=== PATIENT | female | born 1940 | race Caucasian/White ===

== ENCOUNTER 2016-09-03 14:48 | Inpatient (IN) | payer OTHER, MEDICARE ==
--- NOTE | 2016-09-03 15:20 | UCPHY ---
H & P Patient Type: Established Chief Complaint Nursing Narrative: sent from XR due to SOB/CP- fell on corner of wall the Aug HPI/ROS: Chief complaint: Shortness of breath HPI: 76-year-old female with shortness of breath for the past 5 days. 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 Since that time she has had shortness of breath and pain with deep inspiration. She was seen by her primary care physician yesterday who ordered a chest x-ray today. She received a call take a day stating that she had a pneumothorax on the chest x-ray should present for evaluation. Patient has had mild cough. Persistent shortness of with pleuritic pain on the left side in her left back. No fevers or chills. Cough is nonproductive. She has no nausea or vomiting. She did not hit her head. No loss of consciousness. She is not currently on any blood thinning medications. ROS: 10 point Review of Systems is negative except as noted in the HPI. Physical exam: Gen: Awake, Alert, Airway Intact HEENT: Head: Atraumatic Eyes: PERRLA, EOMI Nose: No epistaxis Mouth: Normal dentition, Airway patent Face: No deformity Neck: non-tender, no stepoff, Full ROM without pain Chest: Left lateral posterior chest wall tenderness per to palpation, diminished breath sounds on the left Heart: normal heart tones Abd: soft, non-tender, atraumatic Pelvis: non-tender, stable to AP and Lateral compression Back: atraumatic, no midline tenderness Ext: atramatic, full ROM Skin: no rash Neuro: CN II-XII intact, Strength 5/5 in all extremities, sensation intact in all extremities - Personal History Current Tetanus Diphtheria and Acellular Pertussis (TDAP): Yes - Medical/Surgical History Hx Asthma: No Hx Chronic Respiratory Disease: No Hx Diabetes: No Hx Cardiac Disease: No Hx Renal Disease: No Hx Cirrhosis: No Hx Alcoholism: No Hx HIV/AIDS: No Hx Splenectomy or Spleen Trauma: No Other PMH: INFECTED HIPREPLACEMENT, PARKINSONS - Family History Significant Family History: No pertinent family hx - Social History Smoking Status: Never smoked Constitutional: Initial Vital Signs Temperature (C) 36.6 C 01/17/17 14:59 Heart Rate 88 09/03/16 14:59 Respiratory Rate 18 09/03/16 14:59 Blood Pressure 138/80 H 09/03/16 14:59 O2 Sat (%) 92 09/03/16 14:59 O2 Delivery Mode Room Air Allergies/Adverse Reactions: meperidine HCl [From Demerol] Adverse Reaction (Severe, Verified 03/10/10 10:16) pseudoephedrine HCl [From Sudafed] Adverse Reaction (Unknown, Verified 03/10/10 10:16) Quinidine-Quinine Analogues (Cincho Adverse Reaction (Unknown, Verified 10:16) Sulfa (Sulfonamide Antibiotics) Adverse Reaction (Unknown, Verified 03/10/10 10: 16) tetracycline [Tetracycline] Adverse Reaction (Unknown, Verified 03/10/10 10:16) ciprofloxacin [From Cipro] Adverse Reaction (Verified 03/10/10 10:16) ciprofloxacin HCl [From Cipro] Adverse Reaction (Verified 03/10/10 10:16) digoxin [Digoxin] Adverse Reaction (Verified 03/10/10 10:16) EES Adverse Reaction (Severe, Uncoded 03/10/10 10:16) INDOCIN Adverse Reaction (Unknown, Uncoded 03/10/10 10:16) Home Medications: Medication Instructions Recorded CARBIDOPA-LEVO 10-100 MG ODT 03/10/10 Calcium Citrate W/Vit D 03/10/10 MAGNESIUM 03/10/10 REQUIP 03/10/10 SYNTHROID 03/10/10 TRAMADOL HCL 03/10/10 Medical Decision Making ED Course/Re-evaluation: Have reviewed the patient's chest x-ray. She has a large left hemopneumothorax with some midline shift suggestive of tension physiology. Her hemodynamics are appropriate. She is not tachycardic. Her blood pressure is normal. She is mildly hypoxemic at 92% and this is improved with oxygen. After review of the materials in the urgent care is clear that we do not have adequate indicate materials for placement of a tube thoracostomy. Trauma surgery [place] continues been paged. I have discussed with Dr. Osiris Carrizales, trauma surgeon on [facility]. She will accept the patient transfer to their facility for further care. She agrees that a given the patient sustained a fall 5 days ago and her hemodynamics are appropriate patient does not require emergent needle decompression at this time. She is requesting the patient be transferred to the [facility] Emergency Department where she can then placed chest tube. I have discussed with Dr. Lopez in the ED. He will accept the patient transfer. I have explained to the patient the plan. She understands the necessity for admission to the hospital and for chest tube placement. She is currently declining any pain medicine at this time. An IV is been placed. Labs will be ordered. Departure - Departure Disposition: [facility] Inpatient Acute Clinical Impression: Fracture of rib, Pneumothorax, Hemothorax Condition: Fair - PQRS PQRS Measurement: 134: Depression screening and followup, PRIME MD-PHQ2 (12 years and older) Over the last 2 weeks, how often have you been bothered by any of the following problems? 1. Feeling down, depressed, or hopeless? 2. Little interest or pleasure in doing things? Patient answered no to both 1 and 2 130: Documentation of medications. Reviewed all patient medications, doses, route and frequency. 226: Do you smoke? No. 47: 65 and older: Advanced care planning. Patient designates surrogate decision maker as child. Patient has advanced directive. 51: 18 years old and older with diagnosis of COPD, spirometry performance. Patient has no history of COPD 52: 18 years old and older with COPD and symptoms of COPD or FEV1<60% predicted prescribed a B Agonist. Spirometry not performed; equipment not available.
--- NOTE | 2016-09-03 15:31 | DX ---
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 ICD-1O Diagnostic Codes: M79.601, S29.8XXA, and R05. COMPARISON STUDIES: Chest radiography, dated 01/29/2016 and left rib series, dated 06/20/2015. FINDINGS: LEFT RIB SERIES (4 Views, 2:12 p.m.): There is a large left-sided hydropneumothorax with approximatel y 60-70% collapse of the lung. Pleural fluid is seen at the left lung base. A calcified granuloma is seen within the upper lateral portion of the collapsed left lung. There is a large retrocardiac hiata l hernia also present. There are old healed and/or subacute fractures involving the left eighth, nint h, and tenth ribs (although there appears to be a potential acute superimposed component with the inf erolateral ninth and tenth ribs). There are also old healed right eighth, ninth, and tenth rib fractu re deformities. There is a sigmoid-shaped thoracolumbar scoliosis. There is slight mediastinal shift, left to right, although the trachea remains relatively midline. The right lung is well-expanded. The re are surgical clips in the right upper quadrant of the abdomen. I communicated these results to Dr. Shay Scott, and also discussed them subsequently Dr. Tg vega at the urgent Care Center at 2:40 PM on 09/03/2016. IMPRESSION: 1. There is a large left-sided pneumothorax with a hydropneumothorax component and some slight tensio n. 2. Old right eighth through ninth rib fracture deformities and variably-staged fractures associated w ith the left eighth, ninth and tenth ribs (and an acute superimposed component of the ninth and tenth ribs may be present). 3. Old granulomatous disease. 4. Sigmoid-shaped rotatory thoracolumbar scoliosis, with multilevel degenerative changes. CHEST (PA AND LATERAL VIEWS) at 1:59 PM: A metallic BB has been placed over the inferolateral left ri b cage where fractures involving the left eighth, ninth, and tenth ribs are present and are variably- aged (acute, subacute, and chronic). A large retrocardiac hiatal hernia is noted, and a large left-si ded hydropneumothorax is present with slight tension. The right lung is relatively clear. Sigmoid-sha ped thoracolumbar scoliosis is seen. IMPRESSION: Large left pneumothorax with a hydropneumothorax component, and retrocardiac hiatal herni a with some variably-aged rib fractures. LEFT HUMERUS (2 Views, at 2:15 PM): The bones are demineralized. There is no acute fracture or disloc ation associated with the humerus. On the first image acquired there is an equivocal small rounded os teolucency involving the humeral diaphysis (not seen on the orthogonal plane); perhaps some superimpo sed regional adipose could explain this feature. If there is further clinical concern with localized tenderness in this location, a bone scan could be considered. The glenohumeral and acromioclavicular joints are anatomically aligned. Incidental note is made of the incompletely imaged left hydropneumot horax with some variably aged left-sided rib fractures. IMPRESSION: 1. Bone demineralization, with no acute humeral fracture. 2. Equivocal osteolucency versus artifact associated with the proximal humeral diaphysis. Clinical co rrelation is suggested. If there is further concern, a bone scan may be of benefit. 3. Left hydropneumothorax with rib fractures.
[2016-09-03 15:35] LABS: % IMMATURE GRANULYOCYTES 0.6 % (0.0-1.1); ABSOLUTE IMMATURE GRANULOCYTES 0.04 10^3/uL (0.00-0.10); ADD DIFF? NO; ADD MORPH? NO; ADD SCAN? NO; ATYPICAL LYMPHOCYTE FLAG 10 (0-99); FRAGMENT RBC FLAG 0 (0-99); HEMATOCRIT 37.6 % (38.0-47.0); HEMOGLOBIN 12.9 g/dL (12.6-16.3); LEFT SHIFT FLG 10 (0-99); LIPEMIA HEMOLYSIS FLAG 90 (0-99); MEAN CELL HEMOGLOBIN 30.7 pg (27.9-34.1); MEAN CELL HEMOGLOBIN CONCENTR. 34.3 g/dL (32.4-36.7); MEAN CELL VOLUME 89.5 fL (81.5-99.8); MEAN PLATELET VOLUME 8.9 fL (8.7-11.7); PLATELET CLUMPS FLAG 0 (0-99); PLATELET COUNT 234 10^3/uL (150-400); RED CELL DISTRIBUTION WIDTH 13.8 % (11.5-15.2)
[2016-09-03 15:47] LABS: INR 0.99 (0.83-1.16); PROTIME(PATIENT) 12.9 SEC (12.0-15.0)
[2016-09-03 15:48] LABS: ANION GAP 7 mEq/L (8-16); APTT 32.6 SEC (23.0-38.0); CALCIUM 8.7 mg/dL (8.5-10.4); CARBON DIOXIDE 26 mEq/l (22-31); CHLORIDE 104 mEq/L (97-110); CREATININE 0.9 mg/dL (0.6-1.0); GLOMERULAR FILTRATION RATE > 60; GLUCOSE 95 mg/dL (70-100); POTASSIUM 4.4 mEq/L (3.5-5.2); SODIUM 137 mEq/L (134-144)
[2016-09-03] MEDS ORDERED: ONDANSETRON DISINTEGRATING 4 MG TAB PO PRN (16:34)
[2016-09-03] MEDS ORDERED: NALOXONE HCL 0.4 MG/ML INJ IVP PRN (16:34)
[2016-09-03] MEDS ORDERED: ONDANSETRON 4 MG/2 ML VIAL IVP PRN (16:34)
[2016-09-03] MEDS ORDERED: fentaNYL 100 MCG/2 ML INJ IVP ONE ×3 (16:48→17:05)
--- NOTE | 2016-09-03 17:05 | EDPHY ---
H & P Time Seen by Provider: 09/03/16 17:02 HPI/ROS: CHIEF COMPLAINT: Brought in by paramedics with tension pneumothorax HISTORY OF PRESENT ILLNESS: The patient is brought in by paramedics from the urgent care facility where she was diagnosed with a tension pneumothorax. The patient reportedly had a mechanical fall earlier in the week. She presented to her primary care provider today's office for evaluation of rib pain. As result of that evaluation, a chest x-ray was obtained which demonstrated a left tension hemopneumothorax. The patient is not anticoagulated. The patient does take Requip for her Parkinson's disease. The patient denies any headache, neck pain or abdominal pain. The patient does have some pain in her left humerus. REVIEW OF SYSTEMS: A comprehensive 10 point review of systems is otherwise negative aside from elements mentioned in the history of present illness. Source: Patient Exam Limitations: No limitations - Personal History Current Tetanus Diphtheria and Acellular Pertussis (TDAP): Yes - Medical/Surgical History Hx Asthma: No Hx Chronic Respiratory Disease: No Hx Diabetes: No Hx Cardiac Disease: No Hx Renal Disease: No Hx Cirrhosis: No Hx Alcoholism: No Hx HIV/AIDS: No Hx Splenectomy or Spleen Trauma: No Other PMH: INFECTED HIPREPLACEMENT, PARKINSONS - Family History Significant Family History: No pertinent family hx - Social History Smoking Status: Never smoked Alcohol Use: None Drug Use: None - Physical Exam Exam: General Appearance: Alert, no distress Head: Atraumatic Eyes: Pupils equal, round, reactive ENT, Mouth: No hemotympanum, no oral trauma Neck: Nontender, trachea midline Respiratory: Tenderness and crepitus noted right and left chest wall Cardiovascular: Regular rate and rhythm Abdomen: Abdomen is soft and nontender, pelvis stable Skin: No lacerations, No abrasion Back: No midline T/L/S pain Extremities: Nontender, full range of motion Neurological: A&Ox3, normal motor function, normal sensory exam Constitutional: Initial Vital Signs Temperature (C) 36.6 C 09/03/16 14:59 Heart Rate 88 09/03/16 14:59 Respiratory Rate 18 09/03/16 14:59 Blood Pressure 138/80 H 09/03/16 14:59 O2 Sat (%) 92 09/03/16 14:59 O2 Delivery Mode Nasal Cannula O2 (L/minute) 2 Allergies/Adverse Reactions: [facility] Adverse Reaction (Severe, Verified 03/10/10 10:16) pseudoephedrine HCl [From Sudafed] Adverse Reaction (Unknown, Verified 03/10/10 10:16) Quinidine-Quinine Analogues (Cincho Adverse Reaction (Unknown, Verified 10:16) Sulfa (Sulfonamide Antibiotics) Adverse Reaction (Unknown, Verified 03/10/10 10: 16) tetracycline [Tetracycline] Adverse Reaction (Unknown, Verified 03/10/10 10:16) ciprofloxacin [From Cipro] Adverse Reaction (Verified 03/10/10 10:16) ciprofloxacin HCl [From Cipro] Adverse Reaction (Verified 03/10/10 10:16) digoxin [Digoxin] Adverse Reaction (Verified 03/10/10 10:16) EES Adverse Reaction (Severe, Uncoded 03/10/10 10:16) INDOCIN Adverse Reaction (Unknown, Uncoded 03/10/10 10:16) Home Medications: Medication Instructions Recorded Carbidopa/Levodopa [Rytary ER 1 each PO TID 09/03/16 48.75 mg-195 mg Cap] Cyanocobalamin (Vitamin B-12) 1,000 mcg PO DAILY 09/03/16 [B-12] Docusate Sodium [Colace 100 MG (*)] 100 mg PO TID 09/03/16 Escitalopram Oxalate [Lexapro] 10 mg PO DAILY 09/03/16 Herbals/Supplements -Info Only 1 ea TP DAILY 09/03/16 Levothyroxine [Synthroid 88 mcg 88 mcg PO DAILY06 09/03/16 (*)] Magnesium Carbonate/Al Hydrox 1 each PO DAILY PRN 09/03/16 [Gaviscon Es Tablet Chew] Magnesium Oxide [Magnesium Oxide 400 mg PO DAILY 09/03/16 400 mg (*)] Methyl Salicylate/Menthol 1 each TP DAILY PRN 09/03/16 [SALONPAS PATCH] Ropinirole HCl [Requip] 4 mg PO TID@08,13,18 09/03/16 cycloSPORINE 0.05% [Restasis Opht 1 drop EACHEYE DAILY 09/03/16 Drops(*)] traMADol [Ultram 50 mg (*)] 50 mg PO Q6 PRN 09/03/16 Medical Decision Making - Diagnostics Imaging: LEFT RIB SERIES (4 Views, 2:12 p.m.): There is a large left-sided hydropneumothorax with approximately 60-70% collapse of the lung. Pleural fluid is seen at the left lung base. A calcified granuloma is seen within the upper lateral portion of the collapsed left lung. There is a large retrocardiac hiatal hernia also present. There are old healed and/or subacute fractures involving the left eighth, ninth, and tenth ribs (although there appears to be a potential acute superimposed component with the inferolateral ninth and tenth ribs). There are also old healed right eighth, ninth, and tenth rib fracture deformities. There is a sigmoid-shaped thoracolumbar scoliosis. There is slight mediastinal shift, left to right, although the trachea remains relatively midline. The right lung is well-expanded. There are surgical clips in the right upper quadrant of the abdomen. I communicated these results to Dr. Shay Scott, and also discussed them subsequently Dr. Tg Desai at the urgent Care Center at 2:40 PM on 09/03/2016. IMPRESSION: 1. There is a large left-sided pneumothorax with a hydropneumothorax component and some slight tension. 2. Old right eighth through ninth rib fracture deformities and variably-staged fractures associated with the left eighth, ninth and tenth ribs (and an acute superimposed component of the ninth and tenth ribs may be present). 3. Old granulomatous disease. 4. Sigmoid-shaped rotatory thoracolumbar scoliosis, with multilevel degenerative changes. CHEST (PA AND LATERAL VIEWS) at 1:59 PM: A metallic BB has been placed over the inferolateral left rib cage where fractures involving the left eighth, ninth, and tenth ribs are present and are variably-aged (acute, subacute, and chronic). A large retrocardiac hiatal hernia is noted, and a large left-sided hydropneumothorax is present with slight tension. The right lung is relatively clear. Sigmoid-shaped thoracolumbar scoliosis is seen. IMPRESSION: Large left pneumothorax with a hydropneumothorax component, and retrocardiac hiatal hernia with some variably-aged rib fractures. LEFT HUMERUS (2 Views, at 2:15 PM): The bones are demineralized. There is no acute fracture or dislocation associated with the humerus. On the first image acquired there is an equivocal small rounded osteolucency involving the humeral diaphysis (not seen on the orthogonal plane); perhaps some superimposed regional adipose could explain this feature. If there is further clinical concern with localized tenderness in this location, a bone scan could be considered. The glenohumeral and acromioclavicular joints are anatomically aligned. Incidental note is made of the incompletely imaged left hydropneumothorax with some variably aged left-sided rib fractures. IMPRESSION: 1. Bone demineralization, with no acute humeral fracture. 2. Equivocal osteolucency versus artifact associated with the proximal humeral diaphysis. Clinical correlation is suggested. If there is further concern, a bone scan may be of benefit. 3. Left hydropneumothorax with rib fractures. Portable AP chest. Today at 17:09 History: Left chest tube placement. Comparison examination: 3 hours earlier. Findings: From prior study, there has been placement of a left thoracostomy tube with evacuation of left hydropneumothorax. No significant residual pneumothorax. Moderate atelectasis, left lower lobe. Multiple left-sided rib fractures are again noted. Right lung is clear. Heart size is stable. Advanced thoracic dextroscoliosis. Impression: Left thoracostomy tube placement with evacuation of left hydropneumothorax. Multiple left-sided rib fractures. Dictated By: Matty Hoffmann MD Procedures: Procedure: Chest tube placement. The indication for the procedure was left tension hemopneumothorax. A timeout was observed and patients identity and correct procedure location confirmed. The patient was prepped in a sterile fashion. The patient was anesthetized with 1% lidocaine with epinephrine. After blunt dissection a 28 [place] chest tube was placed in the 5th intercostal space on the left side. There was a large angel of air when the thorax was entered. The tube was sutured in place and dressed. Post placement chest x-ray demonstrated the tube to be in the appropriate position. Following placement of the tube the patient's condition was stable. The patient tolerated the procedure well there were no complications. The procedure was performed by myself. ED Course/Re-evaluation: The patient presents to the ED with a tension pneumothorax. She is hypoxic. I did consult with Dr. Osiris Carrizales who is our on-call trauma surgeon who is currently in the operating room. I did place a 28 [place] chest tube without complication. The patient did receive IV fentanyl. She tolerated the procedure well. Postprocedure x-ray does demonstrate reinflation of the lung with the chest tube appropriately positioned at the apex. Re-evaluation at 6:00 p.m.: Patient has been given additional dose of IV morphine for ongoing pain management. I spoke with the trauma surgeon who will make arrangements for a possible epidural catheter for additional pain control. The patient will be transferred to the intensive care unit for further management of her pneumothorax and multiple rib fractures. Differential Diagnosis: Differential diagnosis considered includes pneumothorax, hemothorax, multi systems trauma, rib fractures Critical Care Time: Critical care time exclusive of procedures and exclusive of the PA's time was 35 minutes, performed by myself, Quincy Karimi MD. - Data Points Laboratory Results: Laboratory Results 09/03/16 15:12 09/03/16 15:12 09/03/16 15:12 WBC 6.81 10^3/uL (3.80-9.50) RBC 4.20 10^6/uL (4.18-5.33) Hgb 12.9 g/dL (12.6-16.3) Hct 37.6 L % (38.0-47.0) MCV 89.5 fL (81.5-99.8) MCH 30.7 pg (27.9-34.1) MCHC 34.3 g/dL (32.4-36.7) RDW 13.8 % (11.5-15.2) Plt Count 234 10^3/uL (150-400) MPV 8.9 fL (8.7-11.7) Neut % (Auto) 73.3 % (39.3-74.2) Lymph % (Auto) 17.3 % (15.0-45.0) [place] % (Auto) 6.6 % (4.5-13.0) Eos % (Auto) 1.8 % (0.6-7.6) Baso % (Auto) 0.4 % (0.3-1.7) Nucleat RBC Rel Count 0.0 % (0.0-0.2) Absolute Neuts (auto) 4.99 10^3/uL (1.70-6.50) Absolute Lymphs (auto) 1.18 10^3/uL (1.00-3.00) Absolute Monos (auto) 0.45 10^3/uL (0.30-0.80) Absolute Eos (auto) 0.12 10^3/uL (0.03-0.40) Absolute Basos (auto) 0.03 10^3/uL (0.02-0.10) Absolute Nucleated RBC 0.00 10^3/uL (0-0.01) Immature Gran % 0.6 % (0.0-1.1) Immature Gran # 0.04 10^3/uL (0.00-0.10) PT 12.9 SEC (12.0-15.0) INR 0.99 (0.83-1.16) APTT 32.6 SEC (23.0-38.0) Sodium 137 mEq/L (134-144) Potassium 4.4 mEq/L (3.5-5.2) Chloride 104 mEq/L (97-110) Carbon Dioxide 26 mEq/l (22-31) Anion Gap 7 mEq/L (8-16) BUN 25 H mg/dL (7-23) Creatinine 0.9 mg/dL (0.6-1.0) Estimated GFR > 60 Glucose 95 mg/dL (70-100) Calcium 8.7 mg/dL (8.5-10.4) Departure - Departure Disposition: [facility] Inpatient Acute Clinical Impression: Hemothorax, Multiple rib fractures Pneumothorax Qualifiers: Pneumothorax type: traumatic Encounter type: initial encounter Qualifier Code: (S27.0XXA) Traumatic pneumothorax, initial encounter Condition: Fair
[2016-09-03] MEDS ORDERED: ONDANSETRON 4 MG/2 ML VIAL ONE (17:19)
[2016-09-03] MEDS ORDERED: fentaNYL 100 MCG/2 ML INJ ONE (17:20)
--- NOTE | 2016-09-03 17:36 | DX ---
Portable AP chest. Today at 17:09 History: Left chest tube placement. Comparison examination: 3 hours earlier. Findings: From prior study, there has been placement of a left thoracostomy tube with evacuation of l eft hydropneumothorax. No significant residual pneumothorax. Moderate atelectasis, left lower lobe. M ultiple left-sided rib fractures are again noted. Right lung is clear. Heart size is stable. Advanced thoracic dextroscoliosis. Impression: Left thoracostomy tube placement with evacuation of left hydropneumothorax. Multiple left -sided rib fractures.
[2016-09-03] MEDS ORDERED: LIDOCAINE 2% 100 MG/5 ML SYR IVP ONE (18:30)
[2016-09-03] MEDS ORDERED: MAGNESIUM CARBONATE PO PRN ×2 (19:02→20:15)
[2016-09-03] MEDS ORDERED: AL HYDROX PO PRN ×2 (19:02→20:15)
[2016-09-03] MEDS ORDERED: METHYL SALICYLATE TP PRN (19:02)
[2016-09-03] MEDS ORDERED: MENTHOL TP PRN (19:02)
[2016-09-03] MEDS ORDERED: LIDOCAINE 1% 2 ML INJ ONE (19:11)
[2016-09-03] MEDS ORDERED: LIDOCAINE 1% 30 ML SDV ONE (19:12)
--- NOTE | 2016-09-03 19:41 | SOAPPROG ---
[facility] Progress Note Assessment/Plan: Assessment: I was asked to see Ms. Alcantara for consideration of Thoracic Epidural for pain relief of acute rib fractures at T8-10. The patient was seen and examined in the ICU. Her history is significant for a fall suffered last Friday but without treatment or evaluation until yesterday, I believe. The patient was quite uncomfortable during my evaluation but with some difficulty was able to get into the sitting position. Of note, she has significant thoracic scoliosis on x-ray and exam and so I was expecting a difficult epidural placement. Consent was obtained and a thoracic epidural was attempted at T7 and T8. After several passes at both levels I aborted the attempt due to patient discomfort and concern about causing further harm including pneumothorax on the right. Plan: At this point I would recommend multimodel analgesia with APAP, Celebrex, small dose narcotics and perhaps low dose ketamine. I'm willing to attempt and epidural again at a later time if the patient is willing but it will be challenging. I'd consider having an ultrasound available on reattempt in order to help locate the ligamentum flavum-given her significant rotary scoliosis. 09/03/16 19:32 Objective: Vital Signs Temp Pulse Resp BP Pulse Ox 36.7 C 80 25 H 169/76 H 95 09/03/16 18:32 09/03/16 18:34 09/03/16 18:34 09/03/16 18:34 09/03/16 18:34 PT 12.9 SEC (12.0-15.0) 09/03/16 15:12 INR 0.99 (0.83-1.16) 09/03/16 15:12 ICD10 Worksheet Patient Problems: Problems Problem Status Diagnosed Hemothorax Acute Multiple rib fractures Acute Pneumothorax Acute
[2016-09-03] MEDS ORDERED: (Methyl Salicylate/Menthol [Salonpas Patch] 1 EACH) TP PRN (20:15)
[2016-09-03] MEDS: ACETAMINOPHEN 325 MG TAB PO PRN (20:49)
[2016-09-03] MEDS: HYDROCODONE/APAP 5/325 TAB PO PRN (20:50)
--- NOTE | 2016-09-03 20:55 | GHP ---
[f rep st] HISTORY AND PHYSICAL DATE OF ADMISSION: 09/03/2016 CHIEF COMPLAINT: Fall, with pneumothorax. HISTORY OF PRESENT ILLNESS: Mrs. Alcantara is a 76 year old who was packing to move on August 30, 2016 and was pulling on a blouse and when it released, fell slightly backwards and hit the jam that outlines a closet. She went about her usual activities. She saw her primary care yesterday who gave her a z pac because he heard crackles. Last evening, in addition to her usual tramadol, she took a half of a Friona and slept well. She presented to urgent care and was surprised by the findings. She presented to urgent care early this afternoon with chest pain and some shortness of breath. Chest x-ray was obtained and pneumothorax on the left side was noted. There was slight tension. She was then transferred to [facility] by EMS. PAST MEDICAL HISTORY: Parkinson's disease, hypothyroidism, depression, hypertension PAST SURGICAL HISTORY: Includes left hip replacement and infection. ALLERGIES: Erythromycin, quinidine, Sudafed, sulfur, tetracyclines. MEDICATIONS: Reviewed and reconciled. SOCIAL HISTORY: She is in the process of moving to [facility] to be with her daughter. Her house is now on the market. She quit smoking in 1987, 15 pack/year history. FAMILY HISTORY: No history of cardiac disease. REVIEW OF SYSTEMS: A 10-point review of systems negative, except per HPI. PHYSICAL EXAMINATION: Vitals: 36.7, 83, 129/69, 20, 100% on 4 L. General: A pleasant, thin, well-groomed woman sitting up in the ER on [facility]. HEENT: Normocephalic no gross hearing deficits. Mucous membranes moist. Pupils equal and round. No scleral icterus. Lungs: Shallow breathing, decreased in bases. Chest tube with no obvious air leak. Serosanguineous fluid in the container. Cardiac: Regular rate. Abdomen: Bowel sounds present. Soft, nontender. Skin: Warm and dry. Results reviewed. I reviewed the chest x-ray that showed a large pneumothorax at the ED. Urgent care, as well as the postplacement chest tube. IMPRESSION/PLAN: The patient is a 76-year-old with Parkinson's disease, hypertension who fell. I will admit her. I have asked Anesthesia to place an epidural. I will consult the hospitalists. I was called from urgent care and was notified of her arrival. As she arrived to the ER, I was at another location in the hospital. I offered to come down to the emergency room, but Dr. Karimi said that he would place the chest tube and that the patient was stable. I saw the patient within an hour of her arrival. /[id number]/MODL MTDD
[2016-09-03] MEDS: DOCUSATE SODIUM 100 MG CAP PO SCH (20:56)
[2016-09-03] MEDS ORDERED: LEVODOPA PO SCH (22:00)
[2016-09-03] MEDS ORDERED: CARBIDOPA PO SCH (22:00)
[2016-09-04] MEDS: traMADol 50 MG TAB PO PRN ×4 (00:17→22:49)
[2016-09-04] MEDS: ACETAMINOPHEN 325 MG TAB PO PRN ×3 (06:01→22:49)
[2016-09-04] MEDS: LEVOTHYROXINE 88 MCG TAB PO SCH (06:02)
--- NOTE | 2016-09-04 07:37 | TRAUMAPN ---
Assessment/Plan: s/p fall with left hydropneumothorax persistant air leak Parkinson's disease Plan: continue CT suction/comfort measure OOB VTE prophylaxis discussed prognosis and travel restrictions David Powers MD, FACS Subjective: resting comfortably s/p left closed tube thoracostomy awake and alert Objective: Vital Signs Temp Pulse Resp BP Pulse Ox 36.9 C 59 L 16 154/81 H 97 09/03/16 21:00 09/04/16 06:00 09/04/16 06:00 09/04/16 06:00 09/04/16 06:00 09/03/16 09/04/16 09/05/16 05:59 05:59 05:59 Intake Total 320 Output Total 455 100 Balance -135 -100 PT 12.9 SEC (12.0-15.0) 09/03/16 15:12 INR 0.99 (0.83-1.16) 09/03/16 15:12 - C-Spine Clearance Cervical Spine Cleared: Yes Provider who Cleared Cervical Spine: Dr. Carrizales Physical Exam - Physical Exam General Appearance: alert, mild distress Neck: non-tender Respiratory: wheezing (minimal expiratory wheezing/audible leak left chest) Cardiac/Chest: regular rate, rhythm Abdomen: non-tender, soft Neuro/Psych: alert, normal mood/affect, oriented x 3 Time Spent w/Patient (minutes): 20
[2016-09-04] MEDS ORDERED: MAG HYDROX/AL HYDROX/SIMETH 30 ML UDCUP PO PRN (07:51)
[2016-09-04] MEDS ORDERED: ROPINIROLE HCL 4 MG PO SCH (08:00)
[2016-09-04] MEDS: CYCLOSPORINE 0.05% 1 EACH BOX EACHEYE SCH (08:13)
[2016-09-04] MEDS: DOCUSATE SODIUM 100 MG CAP PO SCH ×3 (08:13→22:49)
[2016-09-04] MEDS: CYANO/VITAMIN B12 1000 MCG TAB PO SCH (08:13)
[2016-09-04] MEDS: MAGNESIUM OXIDE 400 MG TAB PO SCH (08:13)
[2016-09-04] MEDS: ESCITALOPRAM OXALATE 10 MG TAB PO SCH (08:13)
[2016-09-04] MEDS ORDERED: NON-FORMULARY NEW DRUG (Cyanocobalamin (Vitamin B-12) [B-12] 1,000 MCG) PO SCH (09:00)
--- NOTE | 2016-09-04 09:37 | DX ---
Portable AP chest. September 04, 2016at 5:40 AM History: Follow-up left thoracostomy tube. Comparison examination: One day earlier. Findings: Left chest tube remains in place, without pneumothorax. Left pleural effusion with left low er lobe atelectasis is stable. Multiple left-sided rib fractures are again noted. Right lung is clear. Cardiac silhouette is moderately prominent. Impression: Stable chest. Left chest tube without pneumothorax. Left lower lobe atelectasis and left pleural effusion inferiorly.
--- NOTE | 2016-09-04 11:42 | GCON ---
[f rep st] CONSULTATION PARALEGAL LEGAL SECRETARY CONSULTATION. REASON FOR ADMISSION: Status post fall causing rib fractures and a pneumothorax. HISTORY OF PRESENT ILLNESS: Ms. Alcantara is an extremely pleasant 76-year-old, white female with a past medical history of Parkinson's disease, for which she is somewhat unsteady on her feet. She also knott s hypothyroidism, depression and hypertension. Three days prior to admission, she was pulling a blou se out of her closet, fell backwards and hit the door ham. She had some pain but went about her norm al business. She was seen subsequently thereafter by her primary care doc, and was placed on antibio tics after hearing crackles in her lungs. She continued to have some pain. Took a Tramadol and some [place], but presented to the urgent care, where she was found to have a pneumothorax. She was subseq uently transferred to [facility], where a chest tube was placed and she was admitted to the in tensive care unit. Currently, patient is sitting up in a chair. She states her pain is markedly wel l controlled. There is no shortness of breath, cough or productive sputum. She does become mildly h ypoxemic on room air with conversation. PAST MEDICAL HISTORY: Significant for Parkinson's disease, depression, hypertension, hypothyroidism. PAST SURGICAL HISTORY: She had a left hip replacement. ALLERGIES: To erythromycin, quinidine, Sudafed, sulfur and tetracyclines. SOCIAL HISTORY: Previous heavy smoker, none for many years. No significant alcohol use. Work histo ry: She is a retired nurse. She is . She was in the process of moving to [place], [place] to be with her daughter and family. PHYSICAL EXAM: VITAL SIGNS: Blood pressure is 105/62, pulse is 63, respiration 19, temperature 36.5 , oxygen saturation 93% on room air. GENERAL: She is a well-developed, well-nourished, elderly whit e female, who is resting comfortably. HEENT: Eyes are YVROSE, EOMI. Throat shows no erythema or tons illar hypertrophy. NECK: Supple. There is no cervical adenopathy. HEART: Regular rate and rhythm without murmurs, rubs, or gallops. LUNGS: Show a few bibasilar crackles, left greater than right. There is no E to A changes. ABDOMEN: Soft, nontender. Bowel sounds present in all 4 quadrants. E XTREMITIES: No clubbing, cyanosis, or edema. LABORATORIES: White count 6.8, hemoglobin 12, hematocrit 37, platelet count is 234. INR 0.99. [place] um 137, potassium 4.4, chloride 104, CO2 is 26, BUN 25, creatinine 0.9, glucose is 95. Chest x-ray t his morning shows chest tube in place. No evidence of pneumothorax. Multiple left-sided rib fractur es are noted. IMPRESSION: 1. Status post fall. 2. Multiple rib fractures. 3. Pneumothorax, requiring chest tube. 4. Hypothyroidism. 5. Hypertension. 6. Parkinson's disease. RECOMMENDATIONS: 1. Continue adequate pain control. 2. Continue chest tube to suction. 3. DVT and PE prophylaxis. 4. Stress ulcer prophylaxis. 5. Continue her home medications. 6. Patient is cleared for transfer to floor. /[id number]/MODL
--- NOTE | 2016-09-04 22:11 | DX ---
AP Portable Chest September 04, 2016 Indication: Follow up chest tube placement. FINDINGS: Again present are multiple left-sided rib fractures. The left chest tube is in adequate p osition. There is some basilar atelectatic change on the left. Moderate size hiatal hernia. The ri ght lung is clear. IMPRESSION: Stable left chest tube, without significant residual pneumothorax. Multiple healing rib fractures are noted.
[2016-09-05] MEDS ORDERED: BISACODYL 10 MG SUPP PR ONE (00:09)
[2016-09-05] MEDS: BISACODYL 10 MG SUPP PR PRN ×2 (01:00→18:26)
[2016-09-05] MEDS: LEVOTHYROXINE 88 MCG TAB PO SCH (06:04)
[2016-09-05] MEDS: ACETAMINOPHEN 325 MG TAB PO PRN ×2 (06:04→21:36)
[2016-09-05] MEDS: DOCUSATE SODIUM 100 MG CAP PO SCH ×3 (09:28→21:38)
[2016-09-05] MEDS: CYANO/VITAMIN B12 1000 MCG TAB PO SCH (09:28)
[2016-09-05] MEDS: CYCLOSPORINE 0.05% 1 EACH BOX EACHEYE SCH (09:28)
[2016-09-05] MEDS: ESCITALOPRAM OXALATE 10 MG TAB PO SCH (09:28)
[2016-09-05] MEDS: MAGNESIUM OXIDE 400 MG TAB PO SCH (09:29)
[2016-09-05] MEDS: LIDOCAINE 5% 1 EA PATCH TD SCH (09:29)
[2016-09-05] MEDS: traMADol 50 MG TAB PO PRN ×2 (09:35→21:37)
--- NOTE | 2016-09-05 09:39 | DX ---
Portable AP Upright Chest, at 6:19 a.m. CLINICAL HISTORY: 76-year-old female with left lateral rib fractures and a pneumothorax. COMPARISON STUDY: Chest, dated September 04, 2016. FINDINGS: The patient is slightly rotated the left, and there is a dextrorotatory thoracolumbar scoli osis. There is stable positioning of the left-sided chest tube, and there is no residual pneumothorax appreciated. Left-sided rib fractures are noted and a metallic BB has been left in place over the le ft upper abdomen. The cardiac silhouette remains enlarged, and there is a large retrocardiac hiatal h ernia. The right hemithorax is clear. There is a calcified granuloma in the left upper lobe. IMPRESSION: Radiographically similar to September 04, 2016.
[2016-09-05] MEDS: HYDROCODONE/APAP 5/325 TAB PO PRN (14:04)
--- NOTE | 2016-09-05 16:12 | SOAPPROG ---
SOAP Progress Note Assessment/Plan: Assessment: Plan: Subjective: vss, af lungs clear. no air leak seen. chest tube out tomorrow if no leak seen in am Objective: Vital Signs Temp Pulse Resp BP Pulse Ox 37.0 C 63 17 155/89 H 98 09/05/16 15:09 09/05/16 15:09 09/05/16 15:09 09/05/16 15:09 09/05/16 15:09 09/04/16 09/05/16 09/06/16 05:59 05:59 05:59 Intake Total 320 1500 Output Total 455 710 Balance -135 790 PT 12.9 SEC (12.0-15.0) 09/03/16 15:12 INR 0.99 (0.83-1.16) 09/03/16 15:12 ICD10 Worksheet Patient Problems: Problems Problem Status Diagnosed Hemothorax Acute Multiple rib fractures Acute Pneumothorax Acute
[2016-09-06] MEDS: LEVOTHYROXINE 88 MCG TAB PO SCH (05:03)
[2016-09-06] MEDS: ACETAMINOPHEN 325 MG TAB PO PRN ×2 (05:03→14:18)
[2016-09-06] MEDS: traMADol 50 MG TAB PO PRN (05:03)
--- NOTE | 2016-09-06 06:50 | CPEKG ---
Heart Rate: 62 RR Interval: 968 P-R Interval: 156 QRSD Interval: 76 QT Interval: 416 QTC Interval: 423 P [place]: 31 QRS [place]: -30 T Wave [place]: 17 EKG Severity - ABNORMAL ECG - EKG Impression: SINUS RHYTHM EKG Impression: PROBABLE LEFT ATRIAL ABNORMALITY EKG Impression: LEFT AXIS DEVIATION EKG Impression: LEFT VENTRICULAR HYPERTROPHY EKG Impression: ANTERIOR Q WAVES, POSSIBLY DUE TO LVH Electronically Signed By: Ralph Yepez 07-Sep-2016 13:16:28
[2016-09-06 07:14] LABS: CREATINE KINASE-MB FRACTION 1.26 ng/mL (0-3.19); TROPONIN I < 0.012 ng/mL (0-0.034)
--- NOTE | 2016-09-06 08:05 | DX ---
Portable Chest at 628 hours History: Left rib fractures, pneumothorax. Comparison: Portable chest September 05, 2016. Findings: The left chest tube has been slightly withdrawn, with the lucent sideport outside of the le ft hemithorax. There is an equivocal tiny left apical pneumothorax. Left basilar atelectasis/consolid ation is stable. Heart size is stable. A moderate hiatal hernia is noted. The bones are stable with l imited visualization of multiple known rib fractures. Impression: 1. Interval withdrawal of the left chest tube, with the lucent sideport outside of the hemithorax. 2. Equivocal tiny left apical pneumothorax. 3. Stable left basilar atelectasis/consolidation. Findings discussed with Lake, charge nurse, who will relay the findings to the patient's nurse today at 750 hours.
[2016-09-06] MEDS: LIDOCAINE 5% 1 EA PATCH TD SCH (09:31)
[2016-09-06] MEDS: ESCITALOPRAM OXALATE 10 MG TAB PO SCH (09:31)
[2016-09-06] MEDS: DOCUSATE SODIUM 100 MG CAP PO SCH ×2 (09:31→15:55)
[2016-09-06] MEDS: CYANO/VITAMIN B12 1000 MCG TAB PO SCH (09:31)
[2016-09-06] MEDS: MAGNESIUM OXIDE 400 MG TAB PO SCH (09:31)
[2016-09-06] MEDS: CYCLOSPORINE 0.05% 1 EACH BOX EACHEYE SCH (09:33)
[2016-09-06 11:48] VITALS: BP 118/66; PULSE 62; RESP 17; TEMP 97.8; O2SAT 93
--- NOTE | 2016-09-06 14:44 | TRAUMAPN ---
Assessment/Plan: 76yo F s/p fall c L sided rib Fx and PTX - VSS, HDS - did have some chest tightness this AM, cardiac workup to this point reassuring. - CXR this AM showed that CT had been pulled out, minimal to no output over last 24hrs. This was discontinued this AM without incident. - Pain does appear appropriately controlled, just need to work on placement as she will need rehab but has met all milestones for dischrage when set up. Subjective: Had some chest tightness overnight, had resolved by 0900 Objective: Vital Signs Temp Pulse Resp BP Pulse Ox 36.6 C 62 17 118/66 93 09/06/16 11:46 09/06/16 11:46 09/06/16 11:46 09/06/16 11:46 09/06/16 11:46 09/05/16 09/06/16 09/07/16 05:59 05:59 05:59 Intake Total 1500 600 Output Total 710 550 Balance 790 50 PT 12.9 SEC (12.0-15.0) 09/03/16 15:12 INR 0.99 (0.83-1.16) 09/03/16 15:12 - C-Spine Clearance Cervical Spine Cleared: Yes Provider who Cleared Cervical Spine: Dr. Carrizales Physical Exam - Physical Exam General Appearance: WD/WN, alert, no apparent distress EENT: PERRL/EOMI, normal ENT inspection, pharynx normal, TMs normal Neck: non-tender, full range of motion, supple, normal inspection Respiratory: other (L side aTTP, CT removed, site c/d/i ) Abdomen: normal bowel sounds, non-tender, soft
--- NOTE | 2016-09-06 15:40 | PDIAF ---
- Diagnosis Diagnosis: Fall with rib fractures, pneumothorax Code Status: Full Code - Medication Management Discharge Medications: Medications to Continue on Transfer Carbidopa/Levodopa [Rytary ER 48.75 mg-195 mg Cap] 1 each PO TID 09/03/16 [Last Taken 09/03/16] Cyanocobalamin (Vitamin B-12) [B-12] 1,000 mcg PO DAILY 09/03/16 [Last Taken ] Docusate Sodium [Colace 100 MG (*)] 100 mg PO TID 09/03/16 [Last Taken 09/02/16] Escitalopram Oxalate [Lexapro 10 MG] 10 mg PO DAILY 09/03/16 [Last Taken ] Herbals/Supplements -Info Only 1 ea TP DAILY 09/03/16 [Last Taken Unknown] Levothyroxine [Synthroid 88 mcg (*)] 88 mcg PO DAILY06 09/03/16 [Last Taken ] Magnesium Carbonate/Al Hydrox [Gaviscon Es Tablet Chew] 1 each PO DAILY PRN [Last Taken Unknown] Magnesium Oxide [Magnesium Oxide 400 mg (*)] 400 mg PO DAILY 09/03/16 [Last Taken Unknown] Methyl Salicylate/Menthol [SALONPAS PATCH] 1 each TP DAILY PRN 09/03/16 [Last Taken Unknown] Ropinirole HCl [Requip] 4 mg PO TID@08,13,18 09/03/16 [Last Taken 09/03/16 12:00 ] cycloSPORINE 0.05% [Restasis Opht Drops(*)] 1 drop EACHEYE DAILY 09/03/16 [Last Taken 09/03/16] traMADol [Ultram 50 mg (*)] 50 mg PO Q6 PRN 09/03/16 [Last Taken 09/02/16] Hydrocodone/APAP 5/325 [[place] 5/325 (*)] 1 - 2 tab PO Q4HRS PRN #40 tab [Last Taken Unknown] traMADol [Ultram 50 mg (*)] 50 mg PO Q6 PRN #40 tab 09/06/16 [Last Taken Unknown ] Discharge Medications: Refer to the Discharge Home Medication list for PRN reason. - Orders Services needed: Physical Therapy, Occupational Therapy Diet Recommendation: no restrictions on diet Diet Texture: Regular Texture Diet Wound Care Instructions: Remove L chest dressing 09/07/2016. - Follow Up Care Current Providers and Referrals: Shay Scott MD [Primary Care Provider] - As per Instructions Warren Torrez MD [Medical Doctor] - follow up in 10 days (follow up with trauma surgeon for routine post-hospital check. )
== END 2016-09-06 18:01 | DRG 184 ==
LOC: EDSTATUS 14:48 → CED 15:59 → F2N 18:15 → F3N 09-05 06:40
PROVIDERS: ADMIT Surgery; ATTEND Surgery
PROC: 0W9B30Z Drainage of Left Pleural Cavity with Drainage Device, Percutaneous Approach (ICD-10-PCS; principal; 2016-09-03)
DX: S22.42XA Multiple fractures of ribs, left side, initial encounter for closed fracture (principal); S27.0XXA Traumatic pneumothorax, initial encounter; G20 Parkinson's disease; K44.9 Diaphragmatic hernia without obstruction or gangrene; M41.25 Other idiopathic scoliosis, thoracolumbar region; E03.9 Hypothyroidism, unspecified; I10 Essential (primary) hypertension; F32.9 Major depressive disorder, single episode, unspecified; W01.198A Fall on same level from slipping, tripping and stumbling with subsequent striking against other object, initial encounter; Y92.013 Bedroom of single-family (private) house as the place of occurrence of the external cause
CPT/HCPCS: 71020-PO; 71100-PO; 73060-PO; 80048-PO; 85025-PO; 85610-PO; 85730-PO; 92523-GN; 97110-GP; 97116-GP; 97162-GP; 97166-GO; 97535-GO; G0378; G0463-PO; G8978-GP-CL; G8979-GP-CJ; G8987-GO-CL; G8988-GO-CI; G9168-GO-CI; G9169-GN-CI; G9170-GN-CI; J2001; J2405; J3010

== ENCOUNTER → 2016-09-17 | Outpatient (CLI) | payer OTHER, MEDICARE ==
--- NOTE | 2016-09-17 15:35 | DX ---
Chest, PA and Lateral History: Follow-up left pneumothorax Comparison: September 06, 2016 Findings: A left chest tube has been removed. There is no left pneumothorax. Lateral left basilar con solidation remains with new blunting of the costophrenic angle suggesting a small pleural effusion. A small nodule in the left upper lobe is stable and consistent with an old granuloma. A large hiatal h ernia is again present behind the heart. It is currently filled with food. There are stable moderate T3, T4 and T9 and mild T10 compression deformities since September 03. No new compressions have develop ed. Impression:1. Resolved tiny left pneumothorax 2. Minor densities at the lateral left base. 3. Chronic large hiatal hernia. 4. Severe osteoporosis. This patient might benefit from DEXA scanning and bone building pharmacologic intervention.
== END ==
LOC: CIMAGING 14:37
PROVIDERS: ATTEND Family Medicine
DX: J98.4 Other disorders of lung (principal); K44.9 Diaphragmatic hernia without obstruction or gangrene; M81.0 Age-related osteoporosis without current pathological fracture
CPT/HCPCS: 71020-PO